=== PATIENT | male | born 1990 | race Caucasian/White ===

== ENCOUNTER 2016-09-21 05:19 | Emergency (ER) | payer OTHER ==
[~2016-09-21] VITALS: Ht 175.3 cm; Wt 50.0 kg
[2016-09-21 05:26] VITALS: BP 112/56; PULSE 65; RESP 16; TEMP 98.8; O2SAT 96
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
[2016-09-21] MEDS ORDERED: ONDANSETRON HCL 4 MG/2 ML VIAL IV PUSH ONE (05:30)
[2016-09-21] MEDS ORDERED: SODIUM CHLOR 0.9% 1000 ML INJ 1,000 ML IV ONE (05:30)
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
== END 2016-09-21 07:00 ==
LOC: NEPC 05:19
DX: S09.90XA Unspecified injury of head, initial encounter (principal); F10.920 Alcohol use, unspecified with intoxication, uncomplicated; Y04.2XXA Assault by strike against or bumped into by another person, initial encounter; Y90.7 Blood alcohol level of 200-239 mg/100 ml
CPT/HCPCS: 70450; 70486; 80307; 96361; 96374; 99285; J2405; J7030